=== PATIENT | female | born 1970 | race Caucasian/White ===

== ENCOUNTER → 2018-08-26 | Outpatient (CLI) | payer OTHER ==
--- NOTE | 2018-08-26 10:44 | KCIC ---
MR of the left knee Indication: Left knee pain. Fell 5 years ago. Pain is lateral. Technique: The standard multiplanar sequences are obtained. FINDINGS: Artifact: No significant image degradation. Medial meniscus:Intact. Lateral meniscus: Mild signal within the posterior horn violating the free margin compatible with a small tear. Anterior cruciate ligament: Intact Posterior cruciate ligament: Intact Medial collateral ligament: Intact. Lateral structures: * Iliotibial band: Intact. * Lateral collateral ligament: Intact. * Biceps femoris tendon: Intact * Popliteus tendon attachment: Intact Extensive mechanism: * Patellar tendon: Intact * Quadriceps tendon: Intact * Retinacular structures: Intact Fluid: No significant joint effusion. Small Ivy's cyst. Intra-articular bodies: None visualized Joint compartments * patellofemoral joint: Mild chondromalacia. * medial compartment:Intact * lateral compartment:Intact Bones: No significant lesion or acute fracture. Soft tissue: Unremarkable Impression: 1. Small tear of the lateral meniscus. 2. Mild chondromalacia of the patella. Electronically signed by: Fausto Almodovar MD (08/26/2018 10:40 AM) [id number]
== END | disposition home or self-care (01) ==
LOC: KCIC MRI 08:58
PROVIDERS: ATTEND Orthopaedic Surgery
DX: S83.282A Other tear of lateral meniscus, current injury, left knee, initial encounter (principal); M22.42 Chondromalacia patellae, left knee; M71.22 Synovial cyst of popliteal space [Baker], left knee; X58.XXXA Exposure to other specified factors, initial encounter; Y93.89 Activity, other specified; Y92.89 Other specified places as the place of occurrence of the external cause; Y99.8 Other external cause status
CPT/HCPCS: 73721